=== PATIENT | male | born 1970 | race Caucasian/White ===

== ENCOUNTER 2023-11-14 18:24 | Emergency (ER) | payer OTHER ==
[2023-11-14 18:28] VITALS: BP 143/87; PULSE 77
== END 2023-11-14 19:14 | disposition home or self-care (01) ==
LOC: CC.ED 18:24
DX: S93.401A Sprain of unspecified ligament of right ankle, initial encounter (principal); S93.601A Unspecified sprain of right foot, initial encounter; Z79.82 Long term (current) use of aspirin; Z79.899 Other long term (current) drug therapy; X50.1XXA Overexertion from prolonged static or awkward postures, initial encounter; Y93.89 Activity, other specified
CPT/HCPCS: 73610-RT; 73630-RT; 99283